=== PATIENT | male | born 1955 | race African-American/Black ===

== ENCOUNTER 2016-05-29 15:48 | Emergency (ER) | payer OTHER ==
[~2016-05-29] VITALS: Ht 172.7 cm; Wt 100.3 kg
[~2016-05-29 15:48] MED LIST: AMLODIPINE BESY10 MG PO; ASPIR-LOW81 MG PO; ATENOLOL25 MG PO; CYMBALTA30 MG PO; Cymbalta PO; DESENEX85 GM TP; Desyrel 150 MG Tab PO; ENALAPRIL MALE2.5 M1 PO; FENTANYL1 EAC2 TD; FLEXERIL10 MG PO; GLUCOPHAGE500 MG PO; JANUVIA25 M1 PO; LOTRISONE15 GM TP; Lioresal PO; MICONAZOLE 2% TP; MIRALAX17 GM PO; NORVASC5 MG PO; OXYCODONE HCL10 M1 PO; OXYCONTIN15 MG PO; OXYCONTIN20 MG PO; PEN-VEE K,VEET500 MG PO; PERCOCET 10-321 EACH PO; TRAMADOL HCL50 MG PO; TYLENOL WITH C1 EACH PO; ULTRAM50 MG PO; VALIUM5 MG PO; ZESTRIL,PRINIVI10 MG PO; ZESTRIL,PRINIVI40 MG PO
[2016-05-29 16:33] LABS: HEMATOCRIT 39.3 % (38.0-50.0); MCH 30.4 PG (29.0-34.0); MCHC 33.6 G/DL (30.0-36.0); MCV 90.6 FL (86-99); MEAN PLAT.VOLUME 8.9 uM^3 (9.0-12.4); PLATELET COUNT 284 K/uL (156-360); RBC DIS.WIDTH-CV 13.2 % (11.8-14.6); RBC DIS.WIDTH-SD 43.9 % (39-53); RED BLOOD COUNT 4.34 M/uL (4.00-5.50); WHITE BLOOD COUNT 5.9 K/uL (4.1-10.2)
[2016-05-29 16:40] LABS: CHLORIDE 100 mEq/L (99-109); POTASSIUM 4.1 mEq/L (3.7-5.4)
[2016-05-29 16:41] LABS: PROTHROMBIN TIME 10.5 (9.2-11.2); SODIUM 133 mEq/L (136-147)
[2016-05-29 16:42] LABS: GLUCOSE 395 mg/dL (70-99)
[2016-05-29 16:44] LABS: ANION GAP 10 MEQ/L (2-14)
[2016-05-29 16:46] LABS: GFR ESTIMATE (CALCULATED) > 59 mL/min/
[2016-05-29 16:47] LABS: UREA NITROGEN (BUN) 14 mg/dL (9-23)
[2016-05-29 16:54] LABS: ADD MIUA? YES; BILIRUBIN NEGATIVE; BLOOD NEGATIVE; COLOR YELLOW ((YELLOW)); GLUCOSE (STRIP) >=500; KETONES NEGATIVE; LEUKOCYTES TRACE; NITRITE NEGATIVE; PROTEIN (STRIP) NEGATIVE; SPECIFIC GRAVITY 1.026 (1.000-1.030)
[2016-05-29 17:06] LABS: BACTERIA NONE SEEN /HPF; EPITHELIAL CELLS RARE /HPF; MUCUS TRACE /LPF; UCUL ADDED? NO; WHITE BLOOD CELLS 20-30 /HPF (0-5)
[2016-05-29] MEDS ORDERED: CIPRO500 MG PO (17:57)
[2016-05-29 19:02] VITALS: BP 162/93
== END 2016-05-29 19:03 | disposition home or self-care (01) ==
LOC: EME 15:48
PROVIDERS: Emergency Medicine
DX: N39.0 Urinary tract infection, site not specified (principal); I10 Essential (primary) hypertension; F32.9 Major depressive disorder, single episode, unspecified; G89.29 Other chronic pain; Z85.038 Personal history of other malignant neoplasm of large intestine; E11.9 Type 2 diabetes mellitus without complications; K21.9 Gastro-esophageal reflux disease without esophagitis; Z95.1 Presence of aortocoronary bypass graft; Z79.84 Long term (current) use of oral hypoglycemic drugs
CPT/HCPCS: 80048; 81003; 85027; 85610; 90839; 99281; 99283